=== PATIENT | female | born 1985 | race Caucasian/White ===

== ENCOUNTER → 2016-04-29 | Outpatient (CLI) | payer MEDICAID | LOC: BRMIMAGING 14:32 | PROVIDERS: ATTEND Family Medicine | DX: R10.30 Lower abdominal pain, unspecified (principal) | CPT/HCPCS: 76705-PO ==

== ENCOUNTER → 2016-06-01 | Outpatient (CLI) | payer MEDICAID | LOC: FIMAGING 11:05 | PROVIDERS: ATTEND Midwife | DX: Z32.01 Encounter for pregnancy test, result positive (principal); N93.9 Abnormal uterine and vaginal bleeding, unspecified ==